=== PATIENT | female | born 1980 | race Caucasian/White ===

== ENCOUNTER 2018-06-23 03:48 | Inpatient (IN) | payer MEDICAID ==
[2018-06-23] MEDS ORDERED: LACTATED RINGER'S 1,000 ML IV (04:10)
[2018-06-23] MEDS ORDERED: OXYCODONE/ACETAMINOPHEN (5/325) TAB PO (04:30)
[2018-06-23] MEDS ORDERED: CARBOPROST 250 MCG INJ IM ×2 (04:30→15:00)
[2018-06-23] MEDS ORDERED: OXYTOCIN 30 UNITS/LR 500 ML IV ×3 (04:30→15:00)
[2018-06-23] MEDS ORDERED: MISOPROSTOL 200 MCG TAB PR ×2 (04:30→15:00)
[2018-06-23] MEDS ORDERED: METHYLERGONOVINE 0.2 MG INJ IM ×2 (04:30→15:00)
[2018-06-23] MEDS ORDERED: BUTORPHANOL 2 MG INJ IV (04:30)
[2018-06-23] MEDS ORDERED: IBUPROFEN 600 MG TAB PO (04:30)
[2018-06-23] MEDS ORDERED: LIDOCAINE 1% (MPF) 30 ML INJ INJ (04:30)
[2018-06-23 05:04] LABS: ADD MAN DIFF? NO
[2018-06-23 05:10] LABS: WHITE BLOOD COUNT 9.4 10^3/ul (4.8-10.8)
[2018-06-23 05:10] LABS: BASOPHIL # 0.1 10^3/ul (0.0-0.1); BASOPHILS % 0.5 % (0.0-2.0); EOSINOPHILS % 0.4 % (0.0-7.0); HEMATOCRIT 35.3 % (37.0-47.0); HEMOGLOBIN 12.3 g/dl (12.0-16.0); LYMPHOCYTES # 2.2 10^3/ul (0.8-2.9); LYMPHOCYTES % 23.8 % (15.0-51.0); MEAN CORPUSCULAR HEMOGLOBIN 32.4 pg (29.0-33.0); MEAN CORPUSCULAR HGB CONC 34.8 g/dl (32.0-37.0); MEAN CORPUSCULAR VOLUME 92.9 fl (82.0-101.0); MEAN PLATELET VOLUME 10.7 fl (7.4-10.4); MONOCYTE # 0.7 10^3/ul (0.3-0.9); MONOCYTES % 7.3 % (0.0-11.0); NEUTROPHIL # 6.3 10^3/ul (1.6-7.5); PLATELET COUNT 179 10^3/UL (140-415); RED CELL DISTRIBUTION WIDTH 13.1 % (11.5-14.5)
[2018-06-23 05:34] LABS: INR 0.85; PROTIME 11.7 Sec (11.9-14.9); PT RATIO 0.9
[2018-06-23 05:35] LABS: PARTIAL THROMBOPLASTIN TIME 26.1 Sec (23.0-35.0)
[2018-06-23] MEDS: LACTATED RINGER'S 1,000 ML IV ×2 (05:55→10:04)
[2018-06-23 06:22] LABS: HEPATITIS B SURFACE ANTIGEN NEGATIVE (NEGATIVE)
[2018-06-23] MEDS: OXYTOCIN 30 UNITS/LR 500 ML IV ×3 (07:02→15:00)
[2018-06-23] MEDS ORDERED: LIDOCAINE 1% (MPF) 30 ML INJ (12:00)
[2018-06-23] MEDS ORDERED: OXYCODONE/ASPIRIN (4.88/325) TAB PO (15:00)
[2018-06-23] MEDS ORDERED: NACL 0.9% 3 ML SYG IV (15:00)
[2018-06-23] MEDS ORDERED: SENNA/DOCUSATE NA (8.6MG/50MG) TAB PO (15:00)
[2018-06-23] MEDS: MINERAL OIL LIGHT 10 ML VIAL TOP (15:00)
[2018-06-23] MEDS ORDERED: ZOLPIDEM 5 MG TAB PO (15:00)
[2018-06-23 15:01] LABS: RAPID PLASMA REAGIN NONREACTIVE (NR)
[2018-06-23] MEDS: IBUPROFEN 600 MG TAB PO ×2 (17:52→23:33)
[2018-06-23] MEDS: LANOLIN 7 GM TUBE TOP (17:52)
[2018-06-23] MEDS: SENNA/DOCUSATE NA (8.6MG/50MG) TAB PO (21:22)
[2018-06-24] MEDS: IBUPROFEN 600 MG TAB PO ×4 (05:55→23:25)
[2018-06-24 06:23] LABS: ADD MAN DIFF? NO
[2018-06-24 06:25] LABS: WHITE BLOOD COUNT 10.2 10^3/ul (4.8-10.8)
[2018-06-24 06:25] LABS: BASOPHILS % 0.3 % (0.0-2.0); EOSINOPHILS # 0.1 10^3/ul (0.0-0.5); EOSINOPHILS % 0.6 % (0.0-7.0); HEMATOCRIT 33.2 % (37.0-47.0); HEMOGLOBIN 11.3 g/dl (12.0-16.0); LYMPHOCYTES # 2.3 10^3/ul (0.8-2.9); LYMPHOCYTES % 22.6 % (15.0-51.0); MEAN CORPUSCULAR HEMOGLOBIN 32.2 pg (29.0-33.0); MEAN CORPUSCULAR VOLUME 94.6 fl (82.0-101.0); MEAN PLATELET VOLUME 10.6 fl (7.4-10.4); MONOCYTE # 0.7 10^3/ul (0.3-0.9); MONOCYTES % 6.9 % (0.0-11.0); NEUTROPHILS % 68.9 % (39.0-77.0); PLATELET COUNT 169 10^3/UL (140-415); RED BLOOD COUNT 3.51 10^6/ul (4.20-5.40); RED CELL DISTRIBUTION WIDTH 13.2 % (11.5-14.5)
[2018-06-24] MEDS: SENNA/DOCUSATE NA (8.6MG/50MG) TAB PO ×2 (09:22→21:31)
[2018-06-24] MEDS: WITCH HAZEL/GLYCERIN PAD PR (14:54)
[2018-06-25] MEDS: IBUPROFEN 600 MG TAB PO ×2 (05:27→11:58)
[2018-06-25] MEDS: DIPHTH/TET/ACEL PERTUSS (ADULT) 0.5 ML VIAL IM* (07:19)
[2018-06-25] MEDS: SENNA/DOCUSATE NA (8.6MG/50MG) TAB PO (08:50)
== END 2018-06-25 17:41 | disposition home or self-care (01) | DRG 807 ==
LOC: OBT 03:48 → L-D 03:49 → OBT 04:11 → L-D 04:11 → PP1 14:57
PROVIDERS: Obstetrics & Gynecology
PROC: 10E0XZZ Delivery of Products of Conception, External Approach (ICD-10-PCS; principal; 2018-06-23)
DX: O80 Encounter for full-term uncomplicated delivery (principal); Z37.0 Single live birth; Z3A.38 38 weeks gestation of pregnancy
CPT/HCPCS: 85025; 85610; 85730; 86592; 86850; 86900; 86901; 87340; 90715